=== PATIENT | male | born 1945 | race Caucasian/White ===

== ENCOUNTER 2021-12-02 06:33 | Inpatient (IN) | payer OTHER, SELFPAY ==
[~2021-12-02] VITALS: Ht 180.3 cm; Wt 104.3 kg
[2021-12-02] MEDS ORDERED: MIDAZOLAM HCL 2 MG/2 ML VIAL (VERSED) ONE (08:42)
[2021-12-02 15:23] VITALS: BP_SYST 115
== END 2021-12-02 12:05 | disposition home or self-care (01) | DRG 145 ==
LOC: SMU 06:33 → EDSTATUS 10:15
PROVIDERS: ADMIT Dentist General Practice; ATTEND Dentist General Practice
PROC: 0NB Head and Facial Bones, Excision (ICD-10-PCS; 2021-12-02)
PROC: 0NU Head and Facial Bones, Supplement (ICD-10-PCS; 2021-12-02)
PROC: 0NU Head and Facial Bones, Supplement (ICD-10-PCS; 2021-12-02)
PROC: 0NB Head and Facial Bones, Excision (ICD-10-PCS; principal; 2021-12-02 10:18)
DX: M27.2 Inflammatory conditions of jaws (principal); Z20.822 Contact with and (suspected) exposure to COVID-19; Z79.82 Long term (current) use of aspirin; Z79.899 Other long term (current) drug therapy; Z79.84 Long term (current) use of oral hypoglycemic drugs
CPT/HCPCS: 36415; 70140; J3465

== ENCOUNTER 2021-12-31 06:20 | Day surgery (SDC) | payer OTHER, SELFPAY ==
[~2021-12-31] VITALS: Ht 180.3 cm; Wt 104.3 kg
[2021-12-31 12:28] VITALS: BP_SYST 108
[2021-12-31] MEDS ORDERED: BENZOCAINE 20% GEL 32 GM BOTTLE MM ONE (15:00)
[2021-12-31] MEDS ORDERED: NS IRRIG SOLN 1000 ML IR ONE (15:00)
[2021-12-31] MEDS ORDERED: NS 250 ML BAG IV ONE (15:00)
[2021-12-31] MEDS ORDERED: ARTICAINE HCL/EPINEPHRINE 4%/1:200,000 BIT 1.7 ML CARTRIDGE IJ ONE (15:00)
== END 2021-12-31 11:05 | disposition home or self-care (01) ==
LOC: SMU 06:20 → SDS 06:20
PROVIDERS: ATTEND Dentist General Practice
DX: K05.223 Aggressive periodontitis, generalized, severe (principal); M27.2 Inflammatory conditions of jaws; M89.8X0 Other specified disorders of bone, multiple sites; M26.603 Bilateral temporomandibular joint disorder, unspecified; K04.2 Pulp degeneration; K12.2 Cellulitis and abscess of mouth; I25.10 Atherosclerotic heart disease of native coronary artery without angina pectoris; Z95.5 Presence of coronary angioplasty implant and graft; Z79.899 Other long term (current) drug therapy; Z20.822 Contact with and (suspected) exposure to COVID-19
CPT/HCPCS: 21026; 21215; 21248; 36415; 70140; 87426; C1713 ×2; J7050

== ENCOUNTER 2022-01-21 06:41 | Day surgery (SDC) | payer OTHER, SELFPAY ==
[~2022-01-21] VITALS: Ht 180.3 cm; Wt 104.3 kg
[2022-01-21] MEDS ORDERED: BENZOCAINE 20% GEL 32 GM BOTTLE MM ONE (10:38)
[2022-01-21] MEDS ORDERED: NS 250 ML BAG IV ONE (10:38)
[2022-01-21] MEDS ORDERED: ARTICAINE HCL/EPINEPHRINE 4%/1:200,000 BIT 1.7 ML CARTRIDGE IJ ONE (10:38)
[2022-01-21] MEDS ORDERED: NS IRRIG SOLN 1000 ML IR ONE (10:38)
[2022-01-21 10:55] VITALS: BP_SYST 119
== END 2022-01-21 11:05 | disposition home or self-care (01) ==
LOC: SDS 06:41 → SMU 07:12 → SDS 11:05
PROVIDERS: ATTEND Dentist General Practice
DX: M27.2 Inflammatory conditions of jaws (principal); M89.8X0 Other specified disorders of bone, multiple sites; M26.603 Bilateral temporomandibular joint disorder, unspecified; K05.223 Aggressive periodontitis, generalized, severe; K04.2 Pulp degeneration; K12.2 Cellulitis and abscess of mouth; I25.10 Atherosclerotic heart disease of native coronary artery without angina pectoris; I21.9 Acute myocardial infarction, unspecified; E11.9 Type 2 diabetes mellitus without complications; Z98.2 Presence of cerebrospinal fluid drainage device; Z79.899 Other long term (current) drug therapy; Z20.822 Contact with and (suspected) exposure to COVID-19
CPT/HCPCS: 21025; 21215; 21248; 36415; 70140; 82962; 87426; C1713 ×2; J7050